=== PATIENT | male | born 1955 | race Two or more races ===

== ENCOUNTER 2020-06-15 17:18 | Outpatient (CLI) | payer BC | END 2020-06-15 17:19 | disposition EMS.NT | LOC: EMS 17:18 | PROVIDERS: ATTEND Surgery | DX: M25.521 Pain in right elbow (principal); M25.421 Effusion, right elbow ==

== ENCOUNTER 2020-06-15 18:07 | Emergency (ER) | payer BC ==
--- NOTE | 2020-06-15 18:22 | ED Physician Documentation ---
PD HPI UPPER EXT INJURY - Stated complaint Stated Complaint: GLF,RT ELBOW PX - Chief complaint Chief Complaint: Trauma Ext - History obtained from History obtained from: Patient - Additonal information Additional information: He slipped and fell about an hour ago landing on the right elbow which is his dominant side. There was a deformity briefly. Pain is mild now. No other injuries. Declines pain medication on initial evaluation. Review of Systems Constitutional: reports: Reviewed and negative Eyes: reports: Reviewed and negative Ears: reports: Reviewed and negative Nose: reports: Reviewed and negative Throat: reports: Reviewed and negative Cardiac: reports: Reviewed and negative PD PAST MEDICAL HISTORY - Past Medical History Cardiovascular: Hypertension, High cholesterol - Past Surgical History Past Surgical History: No - Present Medications Home Medications: Ambulatory Orders Medication Instructions Recorded Confirmed Aspirin [Faith Chewable Aspirin] 81 mg PO BIDAC 07/09/15 06/15/20 Pravastatin [Pravachol] 06/15/20 - Allergies Allergies/Adverse Reactions: Allergies Allergy/AdvReac Type Severity Reaction Status Date / Time No Known Drug Allergies Allergy Verified 06/15/20 18:10 - Social History Does the pt smoke?: No Smoking Status: Never smoker Does the pt drink ETOH?: No Does the pt have substance abuse?: No - Immunizations Immunizations are current?: Yes PD ED PE NORMAL - Vitals Vital signs reviewed: Yes - General General: Alert and oriented X 3, No acute distress - Neck Neck: Supple, no meningeal sign, No bony TTP - Extremities Extremities: Other (Very mild tenderness over the proximal ulna, he is significantly tender over the radial head and there is a lot of swelling to the medial side of the elbow consistent with a hematoma. Its not in the olecranon bursa. He cannot quite straighten it without pain. Nl rad/uln pulses.) - Neuro Neuro: Alert and oriented X 3, No sensory deficit (Normal Sensation throughout the right hand), Normal speech Results - Vitals Vitals: Vital Signs - 24 hr 06/15/20 18:11 Temperature 36.5 C Heart Rate 87 Respiratory 16 Rate Blood Pressure 160/90 H O2 Saturation 94 Oxygen O2 Source Room air - Rads (name of study) 3v XR right elbow Radiology: EMP read contemporaneously (No elbow fracture or dislocation, no effusion.) Departure - Departure Disposition: 01 Home, Self Care Clinical Impression: Elbow injury Qualifiers: Encounter type: initial encounter Laterality: right Qualified Code(s): S59.901A - Unspecified injury of right elbow, initial encounter Condition: Good Record reviewed to determine appropriate education?: Yes Instructions: ED Sprain Elbow Follow-Up: [facility] [Provider Group] Comments: If pain not improved by the end of the week, reasonable to follow-up with orthopedic surgeon for further evaluation and treatment. Tylenol or ibuprofen as needed for pain. Return for new or worsening symptoms. Wear the sling as needed for a few days but okay and encouraged to come out of it for gentle range of motion exercises.
[2020-06-15] MEDS ORDERED: ACETAMINOPHEN 325 MG TABLET PO STA (18:57)
--- NOTE | 2020-06-15 19:02 | XRAY Report ---
PROCEDURE: Elbow 3 View RT INDICATIONS: elbow inj TECHNIQUE: 3 views of the elbow were acquired. COMPARISON: None. FINDINGS: Bones: No fractures or dislocations. No suspicious bony lesions. Soft tissues: No elbow joint effusion. No suspicious soft tissue calcifications. IMPRESSION: No acute elbow fracture or dislocation. No significant joint effusion. Reviewed by: Radhames Drake MD on 06/15/2020 6:01 PM [facility] Approved by: Radhames Drake MD on 06/15/2020 6:01 PM [facility] Station ID: [id number]
[2020-06-15 19:17] VITALS: BP 170/99
== END 2020-06-15 19:18 | disposition home or self-care (01) ==
LOC: ED 18:07
DX: S59.901A Unspecified injury of right elbow, initial encounter (principal); W01.0XXA Fall on same level from slipping, tripping and stumbling without subsequent striking against object, initial encounter; I10 Essential (primary) hypertension; Z79.82 Long term (current) use of aspirin
CPT/HCPCS: 73080; 99282; 99283; A9270

== ENCOUNTER 2022-12-05 08:00 | Outpatient (CLI) | payer MEDICARE, BC ==
--- NOTE | 2022-12-05 13:32 | XRAY Report ---
PROCEDURE: Chest 2 View X-Ray INDICATIONS: SHORTNESS OF BREATH TECHNIQUE: 2 views of the chest were acquired. COMPARISON: None. FINDINGS: Surgical changes and devices: None. Lungs and pleura: No pleural effusions or pneumothorax. Lungs are clear. Mediastinum: Mediastinal contours appear normal. Heart size is normal. Bones and chest wall: No suspicious bony lesions. Overlying soft tissues appear unremarkable. IMPRESSION: No acute cardiopulmonary process. Reviewed by: Yasir Lawson on 12/05/2022 11:45 AM PDT Approved by: Yasir Lawson on 12/05/2022 11:45 AM PDT Station ID: [id number]
== END 2022-12-05 23:59 | disposition home or self-care (01) ==
LOC: DI.S 08:00
PROVIDERS: ATTEND Physician Assistant Medical
DX: R06.02 Shortness of breath (principal)